=== PATIENT | female | born 1975 | race African-American/Black ===

== ENCOUNTER 2021-10-27 17:02 | Emergency (ER) | payer OTHER, SELFPAY ==
[2021-10-27 17:18] VITALS: BP 144/89; PULSE 90; RESP 16; TEMP 36.9; O2SAT 99
--- NOTE | 2021-10-27 17:22 | ED.FEMALEGU ---
HPI - Female Genitourinary General Chief complaint: Urogenital-Female Stated complaint: uti Time Seen by Provider: 10/27/21 17:22 Source: patient, RN notes reviewed and old records reviewed History of Present Illness HPI Narrative: 46-year-old female presents to the [facility] with complaints of UTI. Patient complains of burning, frequency and urgency since this morning. Denies abdominal pain or chest pain. Denies fevers. No nausea vomiting or diarrhea. History of hypertension, high cholesterol, anxiety and depression. MD elicited complaint: UTI Related Data Home Medications Medication Instructions Recorded Confirmed amlodipine 10/27/21 atorvastatin 10/27/21 buspirone mg 10/27/21 buspirone mg 10/27/21 carvedilol 10/27/21 irbesartan mg 10/27/21 linagliptin [Tradjenta] mg 10/27/21 Allergies Allergy/AdvReac Type Severity Reaction Status Date / Time No Known Allergies Allergy Unverified 04/17/19 09:08 Review of Systems Review of Systems: All systems reviewed & are unremarkable except as noted in HPI and below Constitutional: Constitutional: Reports no additional constitutional complaints Eyes: Eyes: Reports no additional eye complaints ENT: Reports system reviewed and no additional complaints, except as documented Cardiovascular: Cardiovascular: Reports no additional cardiovascular complaints Respiratory: Respiratory: Reports no additional respiratory complaints Gastrointestinal: Gastrointestinal: Reports no additional gastrointestinal complaints, Denies abdominal pain, Denies nausea and Denies vomiting Genitourinary: Genitourinary: Reports as per HPI, Reports nocturia, Reports dysuria and Denies flank pain Musculoskeletal: Musculoskeletal: Reports no additional musculoskeletal complaints Integumentary/Breasts: Skin/Breast: Reports system reviewed and no additional complaints, except as docu Neurologic: Reports system reviewed and no additional complaints, except as documented Psychiatric: Psychiatric: Reports no additional psychiatric complaints Allergic/Immunologic: Allergic/Immunologic: Reports no additional allergic/immunologic complaints [facility] Past Medical History Medical History (Updated 10/29/21 @ 09:42 by Bharati Briseno) Anxiety and depression High cholesterol Hypertension Surgical History Surgical History (Updated 10/27/21 @ 17:28 by Bharati Briseno) No pertinent past surgical history Social History Social History (Updated 10/27/21 @ 17:28 by Bharati Briseno) Living arrangements: with family Gender identity (if verbalized by the patient): Female Comments At the time of my signature, I reviewed and agree with the nursing past medical, surgical, social, and family history. There is no relevant family history pertinent to the patient complaint. Exam Const: General: no acute distress Nutritional Appearance: well nourished and obese Orientation/consciousness: patient oriented x3 HENMT: Head: normal to inspection Ears: external ears normal Eyes: Pupils: Equal, round and reactive pupils present Neck: Neck: normal visual inspection, no lymphadenopathy and no meningeal signs Chest: Chest palpation & inspection: normal inspection of the chest Resp: Effort & Inspection: normal respiratory effort and no use of accessory muscles Auscultation: clear to auscultation bilaterally, no crackles, no rales, no rhonchi and no wheezes Cardio: Rate: regular rate Rhythm: regular rhythm GI: GI Palp: Yes Soft to palpation, No Tenderness to palpation present (GI) and No Guarding due to palpation present (GI) : General: Yes no CVA tenderness Back/Spine/Pelvis: Back: no CVA tenderness Skin: General skin exam: normal color Rashes: no rashes Wounds: no wounds Neuro: General: patient oriented x3, moves all extremities, no meningeal signs and no focal motor deficits Speech: normal speech Gait exam (Neuro): Normal gait present Extrem: General: normal to inspection Psy
[2021-10-27 17:24] VITALS: BP 144/89; PULSE 90; RESP 16; TEMP 36.9; O2SAT 99
== END 2021-10-27 17:32 | disposition home or self-care (01) ==
PROVIDERS: Emergency Provider Nurse Practitioner
DX: N30.01 Acute cystitis with hematuria (principal); I10 Essential (primary) hypertension
CPT/HCPCS: 81003; 87077; 87086; 87088; 87186; 99213; G0463

== ENCOUNTER 2022-01-17 10:11 | Emergency (ER) | payer OTHER, SELFPAY ==
[2022-01-17 10:21] VITALS: BP 112/84; PULSE 90; RESP 16; TEMP 37.8; O2SAT 97
--- NOTE | 2022-01-17 10:23 | ED.URI ---
HPI - URI/Sore Throat General Chief Complaint: Upper Respiratory Infection Stated Complaint: Sore Throat,Chills Time Seen by Provider: 01/17/22 10:23 Source: patient Mode of arrival: ambulatory Limitations: no limitations History of Present Illness HPI Narrative: 46-year-old female presents with complaint of nasal congestion, cough, body aches, chills, fever, fatigue for 3 days. No chest pain or shortness of breath. Taking [id number] medications to treat her symptoms. Unsure if she had flu vaccine. All systems reviewed and negative except as noted above. Related Data Home Medications Medication Instructions Recorded Confirmed amlodipine 10 mg PO DAILY 10/27/21 01/17/22 atorvastatin 20 mg PO DAILY 10/27/21 01/17/22 buspirone 20 mg PO DAILY 10/27/21 01/17/22 carvedilol 12.5 mg PO DAILY 10/27/21 01/17/22 irbesartan 75 mg PO DAILY 10/27/21 01/17/22 linagliptin [Tradjenta] 5 mg PO DIRECTED 10/27/21 01/17/22 [facility] 01/17/22 01/17/22 Ultra Test] blood-glucose meter [OneTouch 01/17/22 01/17/22 Ultra2 Meter] lancets [OneTouch Delica Plus 01/17/22 01/17/22 Lancet] Allergies Allergy/AdvReac Type Severity Reaction Status Date / Time No Known Allergies Allergy Verified 01/17/22 10:13 Review of Systems Review of Systems: CONSTITUTIONAL: Reports fever, chills, or sweats. EYES: Denies visual changes, redness, or discharge. ENT: Reports rhinorrhea, congestion, sore throat. Denies otalgia. CARDIOVASCULAR: Denies chest pain, palpitations, or edema. RESPIRATORY: Reports cough. Denies dyspnea. GASTROINTESTINAL: Denies abdominal pain, nausea, vomiting, or diarrhea. GENITOURINARY: Denies dysuria or hematuria. SKIN: Denies rash or itching. MUSCULOSKELETAL: Denies back pain, joint pain, or myalgia. NEUROLOGIC: Denies headache, numbness, or weakness. PSYCHIATRIC: Denies anxiety or depression. All other systems reviewed are negative, except as documented in HPI. [facility] Past Medical History Medical History (Updated 01/17/22 @ 10:33 by Ksenia Taylor NP) Anxiety and depression High cholesterol Hypertension Surgical History Surgical History (Updated 10/27/21 @ 17:28 by Bharati Briseno APRN) No pertinent past surgical history Social History Social History (Updated 10/27/21 @ 17:28 by Bharati Briseno APRN) Gender identity (if verbalized by the patient): Female Comments At time of signature, agree with nursing past medical, surgical, social and family history. There is no relevant family history pertinent to the presenting complaint. Exam Narrative: GENERAL: This is a well-nourished, well-developed patient. Patient ill-appearing but in no distress. HEAD: normocephalic, atraumatic. EYES: PERRL. Sclera clear/white. Vision is grossly intact. EARS: External ears normal, auditory canals clear and without drainage, TMs normal without perforation. Hearing grossly intact. NOSE: External nose normal, clear nasal drainage. THROAT: Mucous membranes moist, posterior pharynx clear. NECK: Neck supple, non-tender without lymphadenopathy, masses or thyromegaly. CARDIOVASCULAR: Regular rate and rhythm without murmurs, gallops, or rubs. RESPIRATORY: Clear to auscultation. Breath sounds equal bilaterally. No wheezes, rales, or rhonchi. SKIN: warm, Dry, intact with no suspicious lesions or rash, good texture and turgor. NEURO: awake, alert, and oriented to person, place and time. There were no obvious focal neurologic abnormalities. EXTREMITIES: Normal range of motion. Course Course Level of Care: Express Care Visit Vital Signs Vital signs: Vital Signs Temperature 37.8 C H 01/17/22 10:21 Pulse Rate 90 01/17/22 10:21 Respiratory Rate 16 01/17/22 10: Blood Pressure 112/84 01/17/22 10: Pulse Oximetry 97 01/17/22 10: Temperature 37.7 C H 01/17/22 10: Pulse Rate 90 01/17/22 10:29 Respiratory Rate 16 01/17/22 10: Blood Pressure 112/84
[2022-01-17 10:29] VITALS: BP 112/84; PULSE 90; RESP 16; TEMP 37.7; O2SAT 97
== END 2022-01-17 10:35 | disposition home or self-care (01) ==
PROVIDERS: Emergency Provider Nurse Practitioner Family
DX: J10.1 Influenza due to other identified influenza virus with other respiratory manifestations (principal); E78.00 Pure hypercholesterolemia, unspecified; I10 Essential (primary) hypertension; F41.9 Anxiety disorder, unspecified; F32.A Depression, unspecified
CPT/HCPCS: 87081; 87804; 87880; 99213; G0463

== ENCOUNTER 2025-06-18 17:53 | Emergency (ER) | payer BC, SELFPAY ==
--- NOTE | 2025-06-18 18:04 | ED_ITS ---
HPI - URI/Sore Throat General Chief Complaint: Upper Respiratory Infection Stated Complaint: Cough Time Seen by Provider: 06/18/25 18:22 Source: patient and RN notes reviewed Mode of arrival: ambulatory Limitations: no limitations History of Present Illness HPI Narrative: 50 year old female presents with concern for 5 day history of nasal congestion, nasal drainage, productive cough. She reports wheezing and chest tightness. She does not have a history of asthma. She reports she had a sore throat that went away. She reports chills, sweats, fever symptoms. She has been taking multiple [id number] cough medicines without relief. MD elicited complaint: cough Related Data Home Medications ?Medication ?Instructions ?Recorded ?Confirmed ?Last Taken ?Type amlodipine 10 mg tablet 10 mg PO DAILY 10/27/2112/30 Unknown History buspirone 5 mg tablet 20 mg PO DAILY 10/27/2112/30 Unknown History carvedilol 12.5 mg tablet 12.5 mg PO DAILY 10/27/21 Unknown History blood sugar diagnostic (OneTouch 01/17/22 01/17/22 Un known History Ultra Test strips) blood-glucose meter (OneTouch 01/17/22 01/17/22 Unkno wn History Ultra2 Meter) lancets 33 gauge (OneTouch Delica 01/17/22 01/17/22 U nknown History Plus Lancet) atorvastatin 80 mg tablet mg 06/18/25 Unknown History cholecalciferol (vitamin D3) 1,250 06/18/25 Unknown History mcg (50,000 unit) capsule dulaglutide 1.5 mg/0.5 mL mg subcut 06/18/25 Unknown History subcutaneous pen injector (Trulicity) irbesartan 150 mg tablet mg 06/18/25 Unknown History metformin 850 mg tablet mg 06/18/25 Unknown History spironolactone 50 mg tablet mg 06/18/25 Unknown Histo ry Allergies Allergy/AdvReac Type Severity Reaction Status Date / Time No Known Allergies Allergy Verified 06/18/25 18:14 Review of Systems Review of Systems: CONSTITUTIONAL: Reports malaise, chills, sweats, fever. EYES: Denies visual changes, redness, or discharge. ENT: Reports rhinorrhea, congestion, sore throat. CARDIOVASCULAR: Denies chest pain, palpitations, or edema. RESPIRATORY: Reports cough, chest tightness. Denies dyspnea. GASTROINTESTINAL: Denies abdominal pain, nausea, vomiting, diarrhea SKIN: Denies rash or itching. MUSCULOSKELETAL: Reports myalgia. NEUROLOGIC: Denies headache. All systems reviewed & are unremarkable except as noted in HPI and below PMFSH Past Medical History Medical History (Updated 06/18/25 @ 18:29 by Bharati Orozco NP) High cholesterol Anxiety and depression Hypertension Surgical History Surgical History (Updated 10/27/21 @ 17:28 by Bharati Briseno APRN) No pertinent past surgical history Social History Social History (Updated 10/27/21 @ 17:28 by Bharati Briseno APRN) Living arrangements: with family Gender identity (if verbalized by the patient): Female Comments At time of signature, agree with nursing past medical, surgical, social and family history. There is no relevant family history pertinent to the presenting complaint Exam Narrative: GENERAL: Well-appearing, well-nourished, and in no acute distress. HEAD: Normocephalic EYES: PERRLA, conjunctivae clear ENT: Nares clear. Mucous membranes moist. TM pearly singh with dull light reflex bilaterally; no tragal tenderness. Oropharynx not erythematous without lesions. Tonsils not enlarged and without exudate, no drooling, no hoarseness, no trismus, uvula midline. NECK: Supple. No lymphadenopathy CHEST: Scattered wheeze and rhonchi, breath sounds equal. No wheezing, rhonchi, rales, or stridor. No respiratory distress, speaks in full sentences. HEART: Regular rate and rhythm. No murmur heard. SKIN: Warm, dry, no rash. NEURO: Alert and oriented x3. PSYCH: Normal mood and affect Course Course Emergency Course: Patient is aware of diagnosis, understands and agrees to treatment plan. Anticipatory guidance given. Patient agrees to follow-up as directed and is aware of reasons to seek care at the emergency department. Portions of this record may have been created with voice recognition software Level of Care: Express Care Visit Vital Signs Vital signs: Reviewed. MDM - URI/Sore Throat MDM Narrative Medical decision making narrative: Differential diagnosis considered: Pandey virus, strep pharyngitis, allergic rhinitis, upper respiratory tract infection, sinusitis, rhinosinusitis, nasopharyngitis. viral pharyngitis, otitis media, otitis externa, pneumonia, bronchitis, viral cough syndrome, viral syndrome, and influenza. Exam findings show no acute concerns or changes; patient is non-toxic appearing and is in no distress. Patient is appropriate for outpatient treatment and follow-up. Lab Data Attestation: I reviewed the patient's lab results. Critical Care Time Critical Care Time Critical Care Time: No Discharge Plan Discharge Clinical Impression: Lower respiratory tract infection Patient Disposition: Home Condition: Stable Instructions: Antibiotic Form, How to Use a Metered-Dose Inhaler (ED) Additional Instructions: Take medication as prescribed Recommend antihistamine such as Benadryl at night time and Zyrtec or Park during the day Cough syrup may cause drowsiness; avoid driving or take it at night time. Use inhaler as needed for cough, wheezing, shortness of breath or chest tightness. Also, recommend symptomatic treatment includes: rest, fluids, and increase humidity of the air at home. Recommend Acetaminophen as directed on the bottle to reduce fever, pain, headache. Avoid smoking/second-hand smoke. Please schedule a follow-up visit with your personal physician for further evaluation and treatment within 3-5days. If your symptoms persist, change or worsen significantly before you can contact your personal physician then please, without delay, go to the emergency department for further evaluation. Patient Language: Kuwaiti Prescriptions: New ipratropium bromide 17 mcg/actuation HFA aerosol inhaler 2 puff inhalation Q8H Qty: 12.9 0RF promethazine-DM 6.25-15 mg/5 mL syrup 5 ml PO Q4-6H PRN (Reason: cough) Qty: 120 0RF azithromycin [Zithromax Z-Manuel] 250 mg tablet See Rx Instructions .ROUTE .COMPLEX Qty: 6 0RF Rx Instructions: take 500 mg today (day 1), then 250 mg for 4 days (days 2-5) methylprednisolone [Medrol (Manuel)] 4 mg tablets,dose pack See Rx Instructions .ROUTE .COMPLEX Qty: 21 0RF Rx Instructions: orally per package directions No Action buspirone 5 mg tablet 20 mg PO DAILY carvedilol 12.5 mg tablet 12.5 mg PO DAILY amlodipine 10 mg tablet 10 mg PO DAILY (DME) blood-glucose meter [[facility] Ultra2 Meter] Misc MISCELLANEOUS (DME) OneTouch Ultra Test Strip MISCELLANEOUS (DME) lancets [OneTouch Delica Plus Lancet] 33 gauge misc MISCELLANEOUS atorvastatin 80 mg tablet metformin 850 mg tablet irbesartan 150 mg tablet spironolactone 50 mg tablet cholecalciferol (vitamin D3) 1,250 mcg (50,000 unit) capsule Trulicity 1.5 mg/0.5 mL pen injector SUBCUT Follow-up/Referrals: PHYSICIAN,[facility] [employer] [Primary Care Provider, Internal Medicine] Time of Disposition: 18:35
[2025-06-18 18:15] VITALS: BP 122/73; PULSE 90; RESP 18; TEMP 37; O2SAT 100
== END 2025-06-18 18:43 | disposition home or self-care (01) ==
PROVIDERS: Emergency Provider Nurse Practitioner
DX: J22 Unspecified acute lower respiratory infection (principal); I10 Essential (primary) hypertension; E78.00 Pure hypercholesterolemia, unspecified; F41.9 Anxiety disorder, unspecified; F32.A Depression, unspecified
CPT/HCPCS: 99213; G0463